=== PATIENT | male | born 1980 | race Caucasian/White ===

== ENCOUNTER 2019-07-17 19:12 | Emergency (ER) | payer SELFPAY ==
[~2019-07-17] VITALS: Ht 167.6 cm; Wt 63.6 kg
[~2019-07-17 19:12] MED LIST: ADDERALL15 MG PO; ADDERALL5 MG PO; CELEXA40 MG PO; CEPHALEXIN500 M1 PO; CLEOCIN HC150 MG/CAP PO; DEXADRENE; DEXEDRINE SPANS15 M1 PO; DEXEDRINE10 MG PO; DOXYCYCLINE 10100 MG PO; KLONOPIN 1MG1 MG PO; NORCO 325 MG-51 TAB PO; PERCOCET 325 MG1 TA2 PO; SEPTRA DS 8001 TAB PO; ZYPREXA ZYDIS5 MG PO; [UNRECOGNIZED DRUG - OTHER] PO
[2019-07-17 19:14] VITALS: TEMP 97.4
[2019-07-17 19:40] LABS: COLLECTION METHOD CLEAN CATCH
[2019-07-17 20:08] LABS: MUCOUS Present /lpf; PH 6 (5-8); SQUAMOUS EPITHELIAL 0-2 /hpf; URINE APPEARANCE Clear; URINE BACTERIA Rare /hpf; URINE BILIRUBIN Negative (NEGATIVE); URINE BLOOD 2+ (NEGATIVE); URINE COLOR Yellow; URINE GLUCOSE Negative (NEGATIVE); URINE KETONE Negative (NEGATIVE); URINE LEUKOCYTE ESTERASE Negative (NEGATIVE); URINE NITRATE Negative (NEGATIVE); URINE PROTEIN(semi-quant) Negative (NEGATIVE); URINE RBC 0-2 /hpf; URINE UROBILINOGEN Negative (NEGATIVE)
[2019-07-17] MEDS ORDERED: KLONOPIN2 MG PO (20:22)
[2019-07-17 20:42] LABS: TRICYCLIC ANTIDEPRESS URINE NEGATIVE
[2019-07-17 20:44] LABS: BASO % 0.5 % (0.0-2.0); EOS # 0.1 (0.0-0.7); EOS % 2.3 % (0-4.0); GRAN # 3.4 (1.4-6.5); GRAN % 56.3 % (42.2-75.2); HEMATOCRIT 43.6 % (42.0-52.0); HEMOGLOBIN 14.7 g/dl (13.5-18.0); LYMPH # 1.8 (1.2-3.4); LYMPH % 29.9 % (20.0-51.0); MEAN CELL VOLUME 90 fl (80.0-100.0); MEAN CORPUSCULAR HEMOGLOBIN 30 pg (27.0-31.0); MEAN CORPUSCULAR HGB CONC 34 g/dl (33.0-37.0); MONO # 0.6 (0.1-0.6); MONO % 10.7 % (1.7-9.3); PLATELET COUNT 231 K/mm3 (130-400); RED BLOOD COUNT 4.87 M/mm3 (4.20-5.60); REDCELL DISTRIBUTION WIDTH-CV 12.5 % (11.5-14.5)
[2019-07-17 21:04] LABS: ALANINE AMINOTRANSFERASE 194 U/L (21-72); ALBUMIN 4.2 gm/dL (3.5-5.0); ALKALINE PHOSPHATASE 87 U/L (50-136); ANION GAP 7 mmol/L (7-16); AST,SGOT 129 U/L (15-37); BILIRUBIN,TOTAL 0.5 mg/dL (0.0-1.0); BLOOD UREA NITROGEN 17 mg/dL (9-20); CALCIUM 9.2 mg/dL (8.4-10.2); CARBON DIOXIDE 30 mmol/L (22-30); CHLORIDE 102 mmol/L (98-107); CREATININE, serum 0.85 (0.66-1.25); GLUCOSE 86 mg/dL (74-106); POTASSIUM 4.4 mmol/L (3.4-5.0); SODIUM 139 mmol/L (137-145); TOTAL PROTEIN 7.6 gm/dL (6.4-8.2)
[2019-07-17 21:12] LABS: ACETAMINOPHEN < 10 ug/mL (10-30); ALCOHOL(ethanol),MEDICAL < 10 mg/dL
[2019-07-17 23:38] VITALS: BP 113/73; PULSE 79
== END 2019-07-17 23:50 | disposition home or self-care (01) ==
LOC: COL.ER 19:12
PROVIDERS: Nurse Practitioner
DX: F15.90 Other stimulant use, unspecified, uncomplicated (principal); R44.0 Auditory hallucinations; F90.9 Attention-deficit hyperactivity disorder, unspecified type; F17.210 Nicotine dependence, cigarettes, uncomplicated; F32.9 Major depressive disorder, single episode, unspecified; Z88.0 Allergy status to penicillin; Z86.59 Personal history of other mental and behavioral disorders

== ENCOUNTER 2019-09-11 07:14 | Emergency (ER) | payer SELFPAY ==
[~2019-09-11] VITALS: Ht 167.6 cm; Wt 72.7 kg
[~2019-09-11 07:14] MED LIST changes: +KLONOPIN2 MG PO
[2019-09-11 07:53] VITALS: TEMP 98.8
[2019-09-11] MEDS ORDERED: NORCO 325 MG-51 TAB PO (08:18)
[2019-09-11] MEDS ORDERED: LYRICA 75MG CAP75 MG PO (08:18)
[2019-09-11 08:32] VITALS: BP 119/80; PULSE 84
== END 2019-09-11 08:32 | disposition home or self-care (01) ==
LOC: COL.ER 07:14
DX: B02.29 Other postherpetic nervous system involvement (principal); F41.9 Anxiety disorder, unspecified; F32.9 Major depressive disorder, single episode, unspecified

== ENCOUNTER 2020-08-15 23:56 | Emergency (ER) | payer OTHER ==
[~2020-08-15] VITALS: Ht 170.2 cm; Wt 72.7 kg
[~2020-08-15 23:56] MED LIST changes: +LYRICA 75MG CAP75 MG PO
[2020-08-16] VITALS: TEMP 98.4
[2020-08-16] MEDS ORDERED: ATARAX 25MG25 MG/TAB PO (00:32)
[2020-08-16] MEDS ORDERED: DOXYCYCLINE 10100 MG PO (00:32)
[2020-08-16] MEDS ORDERED: LYRICA 25MG CAP25 MG PO (00:32)
[2020-08-16 00:58] VITALS: BP 121/79; PULSE 79
== END 2020-08-16 00:58 | disposition home or self-care (01) ==
LOC: COL.ER 23:56
DX: L29.9 Pruritus, unspecified (principal); F32.9 Major depressive disorder, single episode, unspecified; F90.9 Attention-deficit hyperactivity disorder, unspecified type; F41.9 Anxiety disorder, unspecified; F17.210 Nicotine dependence, cigarettes, uncomplicated; Z91.19 Patient's noncompliance with other medical treatment and regimen

== ENCOUNTER 2020-11-19 23:06 | Emergency (ER) | payer SELFPAY ==
[~2020-11-19] VITALS: Ht 167.6 cm; Wt 63.6 kg
[~2020-11-19 23:06] MED LIST changes: +ATARAX 25MG25 MG/TAB PO; +LYRICA 25MG CAP25 MG PO
[2020-11-19 23:13] VITALS: TEMP 98.9
[2020-11-19 23:52] LABS: BASO % 0.2 % (0.0-2.0); EOS # 0.1 (0.0-0.7); EOS % 0.6 % (0-4.0); GRAN # 5.8 (1.4-6.5); HEMATOCRIT 43.6 % (42.0-52.0); HEMOGLOBIN 14.2 g/dl (13.5-18.0); LYMPH # 1.9 (1.2-3.4); LYMPH % 22.5 % (20.0-51.0); MEAN CELL VOLUME 86 fl (80.0-100.0); MEAN CORPUSCULAR HEMOGLOBIN 28 pg (27.0-31.0); MEAN CORPUSCULAR HGB CONC 33 g/dl (33.0-37.0); MEAN PLATELET VOLUME 10.2 fl (7.4-10.4); MONO # 0.5 (0.1-0.6); MONO % 6.5 % (1.7-9.3); PLATELET COUNT 302 K/mm3 (130-400); RED BLOOD COUNT 5.06 M/mm3 (4.20-5.60); REDCELL DISTRIBUTION WIDTH-CV 14.2 % (11.5-14.5)
[2020-11-20] LABS: ALANINE AMINOTRANSFERASE 60 U/L (4-49); ALBUMIN 4.4 gm/dL (3.5-5.0); ALKALINE PHOSPHATASE 78 U/L (50-136); ANION GAP 10 mmol/L (7-16); AST,SGOT 51 U/L (15-37); BILIRUBIN,TOTAL 0.4 mg/dL (0.0-1.0); BLOOD UREA NITROGEN 15 mg/dL (9-20); CALCIUM 9.5 mg/dL (8.4-10.2); CARBON DIOXIDE 29 mmol/L (22-30); CHLORIDE 103 mmol/L (98-107); CREATININE, serum 1.01 (0.66-1.25); GLUCOSE 118 mg/dL (74-106); POTASSIUM 3.7 mmol/L (3.4-5.0); SODIUM 142 mmol/L (137-145); TOTAL PROTEIN 8.6 gm/dL (6.4-8.2)
[2020-11-20 00:02] LABS: ACETAMINOPHEN < 10 ug/mL (10-30); ALCOHOL(ethanol),MEDICAL < 10 mg/dL; SALICYLATE < 1.0 mg/dL
[2020-11-20 00:03] LABS: TRICYCLIC ANTIDEPRESS URINE NEGATIVE
[2020-11-20 02:07] VITALS: BP 112/76; PULSE 80
== END 2020-11-20 02:17 | disposition home or self-care (01) ==
LOC: COL.ER 23:06
PROVIDERS: Nurse Practitioner
DX: R44.3 Hallucinations, unspecified (principal); R41.82 Altered mental status, unspecified; R23.4 Changes in skin texture; F32.9 Major depressive disorder, single episode, unspecified; F41.9 Anxiety disorder, unspecified; F90.9 Attention-deficit hyperactivity disorder, unspecified type; F17.210 Nicotine dependence, cigarettes, uncomplicated

== ENCOUNTER 2020-11-20 06:18 | Emergency (ER) | payer SELFPAY ==
[~2020-11-20] VITALS: Ht 167.6 cm; Wt 72.7 kg
[2020-11-20 06:24] VITALS: BP 120/87; TEMP 97.3
[2020-11-20 09:50] VITALS: PULSE 84
== END 2020-11-20 09:50 | disposition home or self-care (01) ==
LOC: COL.ER 06:18
DX: R44.1 Visual hallucinations (principal); F32.9 Major depressive disorder, single episode, unspecified; F41.9 Anxiety disorder, unspecified; F90.9 Attention-deficit hyperactivity disorder, unspecified type; F17.210 Nicotine dependence, cigarettes, uncomplicated

== ENCOUNTER 2020-12-15 14:28 | Emergency (ER) | payer OTHER ==
[~2020-12-15] VITALS: Ht 167.6 cm; Wt 68.2 kg
[2020-12-15 14:42] VITALS: BP 123/81; PULSE 79; TEMP 97.9
== END 2020-12-15 15:45 | disposition home or self-care (01) ==
LOC: COL.ER 14:28
DX: F41.0 Panic disorder [episodic paroxysmal anxiety] (principal); F32.9 Major depressive disorder, single episode, unspecified; F90.9 Attention-deficit hyperactivity disorder, unspecified type; F17.210 Nicotine dependence, cigarettes, uncomplicated; Z79.899 Other long term (current) drug therapy

== ENCOUNTER 2021-02-21 18:37 | Emergency (ER) | payer OTHER ==
[~2021-02-21] VITALS: Ht 170.2 cm; Wt 72.7 kg
[2021-02-21 20:38] LABS: COLLECTION METHOD CLEAN CATCH
[2021-02-21 20:46] LABS: MUCOUS Present /lpf; PH 6 (5-8); SQUAMOUS EPITHELIAL None Seen /hpf; URINE APPEARANCE Hazy; URINE BACTERIA None Seen /hpf; URINE BILIRUBIN Negative (NEGATIVE); URINE BLOOD 1+ (NEGATIVE); URINE COLOR Yellow; URINE GLUCOSE Negative (NEGATIVE); URINE KETONE Negative (NEGATIVE); URINE LEUKOCYTE ESTERASE Negative (NEGATIVE); URINE NITRATE Negative (NEGATIVE); URINE PROTEIN(semi-quant) 1+ (NEGATIVE); URINE UROBILINOGEN Negative (NEGATIVE)
[2021-02-21 20:55] LABS: TRICYCLIC ANTIDEPRESS URINE NEGATIVE
[2021-02-21 21:01] LABS: BASO % 0.2 % (0.0-2.0); EOS % 0.4 % (0-4.0); GRAN # 8.5 (1.4-6.5); GRAN % 80.7 % (42.2-75.2); HEMATOCRIT 44.8 % (42.0-52.0); HEMOGLOBIN 14.7 g/dl (13.5-18.0); LYMPH # 1.2 (1.2-3.4); LYMPH % 11.8 % (20.0-51.0); MEAN CELL VOLUME 85 fl (80.0-100.0); MEAN CORPUSCULAR HEMOGLOBIN 28 pg (27.0-31.0); MEAN CORPUSCULAR HGB CONC 33 g/dl (33.0-37.0); MEAN PLATELET VOLUME 10.2 fl (7.4-10.4); MONO # 0.7 (0.1-0.6); MONO % 6.5 % (1.7-9.3); PLATELET COUNT 280 K/mm3 (130-400); RED BLOOD COUNT 5.25 M/mm3 (4.20-5.60); REDCELL DISTRIBUTION WIDTH-CV 14.6 % (11.5-14.5)
[2021-02-21 21:13] LABS: ALANINE AMINOTRANSFERASE 76 U/L (4-49); ALBUMIN 4.5 gm/dL (3.5-5.0); ALKALINE PHOSPHATASE 89 U/L (50-136); ANION GAP 5 mmol/L (7-16); AST,SGOT 64 U/L (15-37); BILIRUBIN,TOTAL 0.9 mg/dL (0.0-1.0); BLOOD UREA NITROGEN 17 mg/dL (9-20); CALCIUM 9.3 mg/dL (8.4-10.2); CARBON DIOXIDE 29 mmol/L (22-30); CHLORIDE 105 mmol/L (98-107); CREATININE, serum 1.02 (0.66-1.25); GLUCOSE 100 mg/dL (74-106); POTASSIUM 3.8 mmol/L (3.4-5.0); SODIUM 139 mmol/L (137-145); TOTAL PROTEIN 8.5 gm/dL (6.4-8.2)
[2021-02-21 21:15] LABS: ACETAMINOPHEN < 10 ug/mL (10-30); ALCOHOL(ethanol),MEDICAL < 10 mg/dL; SALICYLATE < 1.0 mg/dL
[2021-02-21 22:25] VITALS: BP 121/68; PULSE 88; TEMP 98.9
== END 2021-02-21 22:25 | disposition home or self-care (01) ==
LOC: COL.ER 18:37
PROVIDERS: Nurse Practitioner Family
DX: F41.9 Anxiety disorder, unspecified (principal); F20.9 Schizophrenia, unspecified; S01.00XA Unspecified open wound of scalp, initial encounter; F32.9 Major depressive disorder, single episode, unspecified; F90.9 Attention-deficit hyperactivity disorder, unspecified type; Z79.899 Other long term (current) drug therapy; X58.XXXA Exposure to other specified factors, initial encounter

== ENCOUNTER 2021-06-12 21:35 | Emergency (ER) | payer SELFPAY ==
[~2021-06-12] VITALS: Ht 167.6 cm; Wt 68.2 kg
[2021-06-12 21:42] VITALS: TEMP 98.7
[2021-06-12] MEDS ORDERED: DOXYCYCLINE 10100 MG PO (21:52)
[2021-06-12 22:12] VITALS: BP 132/70; PULSE 78
== END 2021-06-12 22:12 | disposition home or self-care (01) ==
LOC: COL.ER 21:35
DX: S00.90XA Unspecified superficial injury of unspecified part of head, initial encounter (principal); F20.9 Schizophrenia, unspecified; F41.9 Anxiety disorder, unspecified; F32.A Depression, unspecified; F90.9 Attention-deficit hyperactivity disorder, unspecified type; F17.210 Nicotine dependence, cigarettes, uncomplicated; Z79.899 Other long term (current) drug therapy; X58.XXXA Exposure to other specified factors, initial encounter

== ENCOUNTER 2021-06-30 23:49 | Emergency (ER) | payer SELFPAY ==
[~2021-06-30] VITALS: Ht 185.4 cm; Wt 75.0 kg
[2021-07-01 00:04] VITALS: TEMP 98
[2021-07-01 00:22] VITALS: BP 124/70; PULSE 88
== END 2021-07-01 00:22 | disposition home or self-care (01) ==
LOC: COL.ER 23:49
DX: S00.01XA Abrasion of scalp, initial encounter (principal); X58.XXXA Exposure to other specified factors, initial encounter

== ENCOUNTER → 2021-06-30 | Emergency (ER) ==
[~2021-06-30] VITALS: Ht 167.6 cm; Wt 68.2 kg
== END ==
LOC: COL.ER 23:38 → EDBD 23:38
DX: S00.01XA Abrasion of scalp, initial encounter (principal); X58.XXXA Exposure to other specified factors, initial encounter